=== PATIENT | male | born 1990 ===

== ENCOUNTER → 2021-01-27 10:07 | Outpatient (CLI) | payer OTHER, SELFPAY ==
[2021-01-27 11:00] LABS: COVID19 -Nasal RAPID Negative (Negative)
== END ==
PROVIDERS: Visit Provider Nurse Practitioner Family
DX: Z20.822 Contact with and (suspected) exposure to COVID-19 (principal); G47.33 Obstructive sleep apnea (adult) (pediatric)
CPT/HCPCS: 87635; 95811